=== PATIENT | male | born 1955 | race Caucasian/White ===

== ENCOUNTER → 2016-11-22 | Outpatient (CLI) | payer BC ==
[2016-11-22 09:10] LABS: HEMOGLOBIN 16.7 gm/dl (14.0-17.5); RED BLOOD COUNT 5.15 M/UL (4.20-5.50)
[2016-11-22 10:08] LABS: BUN/CREATININE RATIO 19 (0-10)
== END ==
LOC: LAB 08:01
PROVIDERS: Family Medicine
DX: Z01.818 Encounter for other preprocedural examination (principal); I44.0 Atrioventricular block, first degree; E78.5 Hyperlipidemia, unspecified; I10 Essential (primary) hypertension; E11.9 Type 2 diabetes mellitus without complications; E55.9 Vitamin D deficiency, unspecified; M25.562 Pain in left knee
CPT/HCPCS: 36415; 71020; 80053; 80061; 83036; 84439; 84443; 85027

== ENCOUNTER → 2016-11-29 | Outpatient (CLI) | payer BC | LOC: NM 08:55 | DX: R94.31 Abnormal electrocardiogram [ECG] [EKG] (principal); I20.9 Angina pectoris, unspecified; I10 Essential (primary) hypertension; R94.39 Abnormal result of other cardiovascular function study | CPT/HCPCS: ECHO; 78452; 93017; 93306; A9502; J2785 ==

== ENCOUNTER → 2020-10-07 | Outpatient (CLI) | payer BC | LOC: RAD 16:37 | DX: M25.561 Pain in right knee (principal); M25.562 Pain in left knee; G89.29 Other chronic pain; M17.11 Unilateral primary osteoarthritis, right knee | CPT/HCPCS: 73562 ==

== ENCOUNTER → 2020-12-27 | Outpatient (CLI) | payer BC ==
[~2020-12-27] MED LIST: ALDACTONE 25MG25 MG PO; ATORVASTATIN CA80 MG PO; BAYER CHEWABLE81 MG PO; COREG 12.5MG12.5 MG PO; ENTRESTO 24 MG1 EACH PO; FARXIGA10 MG PO; FLONASE 0.05% N16 GM; HYDROXYZINE HCL50 MG PO; JANUVIA100 MG PO; METFORMIN HCL1000 MG PO; OZEMPIC1 MG/0.71 SQ; XYZAL5 MG PO
[2020-12-27 10:43] LABS: HEMOGLOBIN 15.9 gm/dl (14.0-17.5); RED BLOOD COUNT 4.91 M/UL (4.20-5.50); WHITE BLOOD COUNT 5.8 K/UL (4.5-11.0)
[2020-12-27 11:51] LABS: BUN/CREATININE RATIO 13 (0-10)
[2020-12-28 07:13] LABS: VITAMIN D, 25-HYDROXY 36.1 ng/mL (30.0-100.0)
[2020-12-28 13:15] LABS: C-PEPTIDE, SERUM 4.7 ng/mL (1.1-4.4)
== END ==
LOC: LAB 08:48
PROVIDERS: Family Medicine
DX: Z12.5 Encounter for screening for malignant neoplasm of prostate (principal); E11.9 Type 2 diabetes mellitus without complications; E78.5 Hyperlipidemia, unspecified; I10 Essential (primary) hypertension; E55.9 Vitamin D deficiency, unspecified
CPT/HCPCS: 36415; 80053; 80061; 82043; 84153; 84439; 84443; 84681; 85027

== ENCOUNTER → 2021-01-09 | Outpatient (CLI) | payer BC | LOC: HEART 5 07:37 | DX: N18.30 Chronic kidney disease, stage 3 unspecified (principal) | CPT/HCPCS: 78452; A9502; J2785 ==

== ENCOUNTER → 2021-01-20 | Outpatient (CLI) | payer BC | LOC: ECHO 09:52 | DX: Z01.810 Encounter for preprocedural cardiovascular examination (principal) | CPT/HCPCS: ECHO; 93306 ==

== ENCOUNTER → 2021-02-02 | Outpatient (CLI) | payer BC ==
[2021-02-02 07:52] LABS: HEMOGLOBIN 16.4 gm/dl (14.0-17.5); RED BLOOD COUNT 5.3 M/UL (4.20-5.50); WHITE BLOOD COUNT 5.8 K/UL (4.5-11.0)
[2021-02-02 08:15] LABS: BUN/CREATININE RATIO 19 (0-10)
== END ==
LOC: CATH 07:10
PROVIDERS: Internal Medicine Cardiovascular Disease
DX: I25.10 Atherosclerotic heart disease of native coronary artery without angina pectoris (principal); I11.0 Hypertensive heart disease with heart failure; I50.22 Chronic systolic (congestive) heart failure; E11.9 Type 2 diabetes mellitus without complications
CPT/HCPCS: 36415; 80048; 85025; 85610; 93005; 99152; 99153; C1769; C1894; J1644; J2250; J3010; J7040; Q9967

== ENCOUNTER → 2021-02-08 | Outpatient (CLI) | payer BC ==
[2021-02-10 10:15] LABS: HBSAG SCREEN Negative (Negative); HEP A AB, IGM Negative (Negative); HEP B CORE AB, IGM Negative (Negative); HEP C VIRUS AB <0.1 (0.0-0.9)
== END ==
LOC: LAB 17:07
PROVIDERS: Family Medicine
DX: R53.83 Other fatigue (principal); Z20.5 Contact with and (suspected) exposure to viral hepatitis
CPT/HCPCS: 36415; 80074

== ENCOUNTER → 2021-02-15 | Outpatient (CLI) | payer BC | LOC: NM 10:23 | DX: I25.10 Atherosclerotic heart disease of native coronary artery without angina pectoris (principal); I51.9 Heart disease, unspecified | CPT/HCPCS: 78452; A9505 ==

== ENCOUNTER → 2021-02-15 | Outpatient (CLI) | payer BC | LOC: HEART 5 08:50 | DX: Z01.811 Encounter for preprocedural respiratory examination (principal); R06.02 Shortness of breath; Z87.891 Personal history of nicotine dependence | CPT/HCPCS: 94010 ==

== ENCOUNTER → 2021-02-20 | Outpatient (CLI) | payer BC | LOC: EXRD 02-16 11:00 | DX: Z01.810 Encounter for preprocedural cardiovascular examination (principal); I10 Essential (primary) hypertension | CPT/HCPCS: 93880 ==

== ENCOUNTER → 2021-03-17 | Outpatient (CLI) | payer BC ==
[2021-03-17 14:59] LABS: HEMOGLOBIN 12.3 gm/dl (14.0-17.5); RED BLOOD COUNT 3.95 M/UL (4.20-5.50); WHITE BLOOD COUNT 5.4 K/UL (4.5-11.0)
== END ==
LOC: LAB 14:02
PROVIDERS: Family Medicine
DX: I10 Essential (primary) hypertension (principal)
CPT/HCPCS: 36415; 80053; 85027

== ENCOUNTER → 2021-05-02 | Outpatient (CLI) | payer BC | LOC: LAB 15:49 | PROVIDERS: Internal Medicine Cardiovascular Disease | DX: I50.9 Heart failure, unspecified (principal) | CPT/HCPCS: 36415; 80048 ==

== ENCOUNTER 2021-05-30 13:44 | Emergency (ER) | payer SELFPAY | END 2021-05-30 15:15 | disposition home or self-care (01) | LOC: ER1 13:44 | DX: S63.287A Dislocation of proximal interphalangeal joint of left little finger, initial encounter (principal); I11.9 Hypertensive heart disease without heart failure; E11.9 Type 2 diabetes mellitus without complications; E78.5 Hyperlipidemia, unspecified; F17.200 Nicotine dependence, unspecified, uncomplicated; Z95.1 Presence of aortocoronary bypass graft; W01.0XXA Fall on same level from slipping, tripping and stumbling without subsequent striking against object, initial encounter | CPT/HCPCS: 73130; 99283 ==

== ENCOUNTER → 2021-05-30 | Outpatient (CLI) | payer BC | LOC: HEART 5 08:00 | DX: I08.1 Rheumatic disorders of both mitral and tricuspid valves (principal) | CPT/HCPCS: 93306 ==